=== PATIENT | female | born 1960 | race African-American/Black ===

== ENCOUNTER 2019-12-27 09:33 | Emergency (ER) | payer BC, MEDICAID, MEDICARE ==
[~2019-12-27] VITALS: Ht 160 cm; Wt 74.0 kg
[~2019-12-27 09:33] MED LIST: DOXY100T PO; HYDR-3164 PO; ORPH100T PO
[2019-12-27 09:56] VITALS: BP 123/73
--- NOTE | 2019-12-27 10:06 | PHYS DOC ---
Past Medical History Past Medical History: High Cholesterol, Hypertension, Seizure, Other Additional Past Medical Histor: encephalopathy Past Surgical History: No Surgical History Smoking Status: Former Smoker Alcohol Use: Rarely Drug Use: None Adult General Chief Complaint Chief Complaint: INSECT BITE HPI HPI Patient is a 59 year old female who presents with concern for possible insect bite in the gluteal cleft. Her symptoms have been present 2-3 days. No treatment has been given prior to arrival. No drainage from this area. No fever or chills reported. Review of Systems Review of Systems All other ROS is negative unless otherwise stated in HPI Allergies Allergies Allergies Coded Allergies Type Severity Reaction Last Updated Verified No Known Drug Allergies 06/05/16 No Physical Exam Physical Exam See above Constitutional: Well developed, well nourished, no acute distress, non-toxic ap pearance. [] HENT: Normocephalic, atraumatic, bilateral external ears normal, oropharynx moist, no oral exudates, nose normal. [] Eyes: PERRLA, EOMI, conjunctiva normal, no discharge. [] Neck: Normal range of motion, no tenderness, supple, no stridor. [] Cardiovascular:Heart rate regular rhythm, no murmur [] Lungs & Thorax: Bilateral breath sounds clear to auscultation [] Abdomen: Bowel sounds normal, soft, no tenderness, no masses, no pulsatile masses. [] Skin: Warm, dry, no erythema, no rash. There is a small area of skin excoriation of the gluteal cleft with some overlying scab. No evidence of erythema or a bscess Back: No tenderness, no CVA tenderness. [] Extremities: No tenderness, no cyanosis, no clubbing, ROM intact, no edema. [] Neurologic: Alert and oriented X 3, normal motor function, normal sensory function, no focal deficits noted. [] Psychologic: Affect normal, judgement normal, mood normal. [] EKG EKG [] Radiology/Procedures Radiology/Procedures [] Course & Med Decision Making Course & Med Decision Making Pertinent Labs and Imaging studies reviewed. (See chart for details) Reason seen for concern for possible insect bite. This time she does have some skin irritation with overlying scab but I see no evidence of infection. Recommend continuation of care and monitoring. Dragon Disclaimer Dragon Disclaimer This electronic medical record was generated, in whole or in part, using a voice recognition dictation system. Departure Departure Impression: Primary Impression: Gluteal cleft wound Disposition: 01 HOME, SELF-CARE Condition: STABLE Referrals: JAMIR LAROSE MD (PCP) Follow-up for worsening symptoms. Patient Instructions: Wound Care, [id number] Additional Instructions: Continue to monitor the area for redness, swelling, drainage. Return to the ER or your primary care physician for worsening symptoms. ARIES MILLARD DO Dec 27, 2019 10:06
== END 2019-12-27 10:13 | disposition home or self-care (01) ==
LOC: ER 09:33
DX: S31.829A Unspecified open wound of left buttock, initial encounter (principal); E78.00 Pure hypercholesterolemia, unspecified; I10 Essential (primary) hypertension; Z87.891 Personal history of nicotine dependence; X58.XXXA Exposure to other specified factors, initial encounter; Y93.89 Activity, other specified; Y92.89 Other specified places as the place of occurrence of the external cause; Y99.8 Other external cause status
CPT/HCPCS: 99281